=== PATIENT | male | born 1965 | race Caucasian/White ===

== ENCOUNTER 2022-12-22 09:18 | Day surgery (SDC) | payer OTHER ==
--- NOTE | 2022-11-24 08:32 | HP ---
DATE OF SURGERY: 11/24/2022 HISTORY OF PRESENT ILLNESS: The patient is a 57-year-old had lump on his back for a while worse recently. When he lays down at night it itches. PAST MEDICAL HISTORY: Seasonal allergies. Hypertension. History of lung nodule. Bronchitis. Chronic obstructive pulmonary disease. Chronic lung disease. PAST SURGICAL HISTORY: Tonsillectomy. Hemorrhoidectomy. Cyst removed from his foot and arm in the past. MEDICATIONS: Symbicort, albuterol sulfate, losartan/hydrochlorothiazide. ALLERGIES: LEVAQUIN. FAMILY HISTORY: Lung cancer, heart disease. History of atrial fibrillation in the family. SOCIAL HISTORY: Former smoking. No alcohol abuse. REVIEW OF SYSTEMS: Fourteen systems reviewed. No chest pain or palpitations. Other systems negative or noncontributory as above and per preadmission questionnaire. PHYSICAL EXAMINATION: Height 5'10". BMI 25.25. GENERAL: No acute distress. HEENT: Sclerae nonicteric. EOMI. Oropharynx mucous membranes moist. NECK: No JVD. CHEST: Equal excursion, nonlabored breathing. CVS: Regular rate and rhythm. ABDOMEN: Soft. EXTREMITIES: No cyanosis or edema. Right thigh subcu mass or lipoma. NEURO: Alert, oriented, moving extremities symmetrically. RECTAL: Deferred timed to endoscopy exam. PSYCH: Appropriate mood and affect. SKIN: Dry. BACK: Two large subcutaneous mass question lipoma or other etiology. IMPRESSION: Enlarging back and right thigh subcu masses possible lipoma. I recommend excision given location, size and discomfort. Risk of bleeding or infection, possibly requiring packing, risk of hematoma, seroma, risk of aches, pains, burning, numbness, risk of anesthesia, deep venous thrombosis, pulmonary embolism, or pneumonia but not limited to, consent obtained. Will proceed with excisional biopsy of back and right thigh subcutaneous mass or lipoma outpatient. He will continue medications for his chronic lung disease, hypertension and seasonal allergies.
--- NOTE | 2022-12-22 08:24 | HP ---
DATE OF SURGERY: 12/22/2022 HISTORY OF PRESENT ILLNESS: The patient is a 57-year-old had lump on his back worse recently. Increased symptoms when he lays down at night. Itches at times. PAST MEDICAL HISTORY: Seasonal allergies. Hypertension. History of lung nodule. Bronchitis. Chronic obstructive pulmonary disease. Asthma in the past. PAST SURGICAL HISTORY: Tonsillectomy. Hemorrhoidectomy. Cyst removed from right foot and left arm in the past. MEDICATIONS: Albuterol sulfate, losartan/hydrochlorothiazide. ALLERGIES: LEVAQUIN. FAMILY HISTORY: Lung cancer, heart disease. SOCIAL HISTORY: Former smoker. No alcohol abuse. REVIEW OF SYSTEMS: Fourteen systems reviewed. No chest pain or palpitations. Other systems negative or noncontributory as above and per preadmission questionnaire. PHYSICAL EXAMINATION: Height 5'10". BMI 25.25. GENERAL: No acute distress. HEENT: Sclerae nonicteric. EOMI. Oropharynx mucous membranes moist. NECK: No JVD. CHEST: Equal excursion, nonlabored breathing. CVS: Regular rate and rhythm. ABDOMEN: Soft. No peritoneal signs. EXTREMITIES: No cyanosis or edema. Right thigh question of subcu mass or lipoma. NEURO: Alert, oriented, moving extremities symmetrically. PSYCH: Appropriate mood and affect. SKIN: Dry. BACK: Two large subcutaneous mass question lipoma or other etiology. IMPRESSION: Enlarging back and right thigh subcu masses possible lipoma. He would benefit from excision. General risk of bleeding or infection possibly requiring packing, risk of hematoma, seroma formation, risk of aches, pains, burning, numbness, risk of anesthesia, deep venous thrombosis, pulmonary embolism, or pneumonia but not limited to. Otherwise continue medication for hypertension and chronic lung disease. Will proceed with excisional biopsy of back x2 and right thigh subcutaneous mass or lipoma as an outpatient.
[2022-12-22] MEDS ORDERED: Lactated Ringers 1,000 ML IV ONE ×2 (10:13→13:08)
[2022-12-22] MEDS ORDERED: Lactated Ringers 1,000 ML IV SCH (10:30)
[2022-12-22] MEDS ORDERED: Sodium Chloride 3 ML UD NEBULES IH ONE (11:36)
[2022-12-22] MEDS ORDERED: Xopenex 1.25 MG/0.5 ML UD NEBULE IH ONE (11:36)
[2022-12-22] MEDS ORDERED: Quelicin Fliptop 200 MG/10 ML ONE (11:46)
[2022-12-22] MEDS ORDERED: Decadron 4 MG INJ ONE (11:46)
[2022-12-22] MEDS ORDERED: Zofran 4 MG/2 ML VIAL ONE (11:46)
[2022-12-22] MEDS ORDERED: Xylocaine-Mpf 2% 5 Ml Vial ONE (11:46)
[2022-12-22] MEDS ORDERED: DEXMEDETOMIDINE 80 MCG/20ML-NS IV ONE (11:46)
[2022-12-22] MEDS ORDERED: DIPRIVAN 200 MG/20 ML IV ONE (11:46)
[2022-12-22] MEDS ORDERED: SUBLIMAZE 100 MCG/2 ML ONE (11:47)
[2022-12-22] MEDS ORDERED: Versed 2 MG/2 ML Injection ONE (11:47)
[2022-12-22] MEDS ORDERED: Sensorcaine 0.25% 10 ML ONE (12:00)
[2022-12-22] MEDS ORDERED: OFIRMEV 100 ML IV ONE (12:02)
[2022-12-22] MEDS ORDERED: Pre-Attached Lta Kit TP ONE (12:02)
[2022-12-22] MEDS ORDERED: KEFZOL 1 GM ONE (12:32)
[2022-12-22] MEDS ORDERED: ROBINUL ONE (12:55)
--- NOTE | 2022-12-22 14:21 | OP ---
SURGERY DATE/TIME: 12/22/2022 1215 PREOPERATIVE DIAGNOSIS: Enlarging subcutaneous mass back and thigh. POSTOPERATIVE DIAGNOSIS: Enlarging subcutaneous mass back and thigh. PROCEDURES: 1) Excisional biopsy of left back subcutaneous mass (approximately 6 cm). 2) Excisional biopsy of right back subcutaneous mass (approximately 5 cm). 3) Excisional biopsy of right thigh subcutaneous mass or lipoma (approximately 4.5 cm). SURGEON: Angel Pritchard M.D. ANESTHESIA: General. ESTIMATED BLOOD LOSS: Minimal. INDICATIONS: As noted above. Risks and benefits explained in detail but not limited to, consent obtained. The sites were marked in the preoperative holding area. DESCRIPTION OF PROCEDURE AND FINDINGS: The patient is taken to the operating room. General anesthesia induced, prepped and draped in usual sterile fashion. After official time out and no disagreement with planned procedure, prepping the back and thigh in prone position. Starting first to the right back. Transverse incision made dissection carried down circumferentially around this lobulated lipoma. It measured about 5 cm in size carefully dissected off of the underlying fascia. There was one small area of the fascia that part of it was coming through. It was closed with Vicryl at the end of the procedure. Specimen passed off. Good hemostasis noted. The subcu closed down to the level of the fascia with interrupted 3-0 Vicryl. Skin closed with 4-0 Vicryl in running subcuticular fashion. 0.25% Marcaine local injected around the area. Attention is then turned to the left back. Transverse incision made. Dissection carried down and circumferentially around this little bit lobulated lipomatous density dissected off the underlying fascia this measured 6 cm in size and passed off for pathology. Good hemostasis noted. Subcu closed down to the level of the fascia with interrupted 3-0 Vicryl. Skin closed with 4-0 Vicryl running subcuticular fashion. 0.25% Marcaine local injected along the skin incision fascial defect. Attention is then turned to the right thigh. Longitudinal incision made. Dissection carried down circumferentially around this lipomatous density dissected off the underlying fascia. It measured about 4.5 cm in size and passed off for pathology. Good hemostasis noted. Subcu closed down to level of fascia with interrupted 3-0 Vicryl. Skin closed with 4-0 Vicryl. Some interrupted 3-0 Prolene was used to reinforce the area given the location. Steri-Strips and sterile dressing applied. 0.25% Marcaine local injected along the skin incision fascial defect. The patient tolerated the procedure well. There were no immediate complications. There was no family available to discuss the findings with out in the waiting area.
[2022-12-22 15:17] VITALS: BP 107/74; PULSE 61; O2SAT 99
== END 2022-12-22 15:35 | disposition home or self-care (01) ==
LOC: SDC 09:18
PROVIDERS: ATTEND Surgery
DX: D17.1 Benign lipomatous neoplasm of skin and subcutaneous tissue of trunk (principal); D17.23 Benign lipomatous neoplasm of skin and subcutaneous tissue of right leg; Z80.1 Family history of malignant neoplasm of trachea, bronchus and lung
CPT/HCPCS: 94640; J0330; J0690; J1100; J2250; J2405; J2704; J3010; J7614; A9270-GY